=== PATIENT | male | born 1975 | race Two or more races ===

== ENCOUNTER 2020-05-28 22:23 | Emergency (ER) | payer MEDICAID ==
[~2020-05-28] VITALS: Ht 180.3 cm; Wt 118.0 kg
--- NOTE | 2020-05-28 22:56 | NUR ---
PT HERE FOR HEMATOMA AND PAIN TO LEFT LEG. PT DENIES ANY MD HX. PT CHANGING INTO GOWN. PT HAS NO NEEDS AT THIS TIME. CALL LIGHT IN REACH
[2020-05-28 23:51] LABS: BASOPHILS % (AUTO) 2 % (0-1); EOSINOPHILS % (AUTO) 2 % (1-7); LYMPHOCYTES % (AUTO) 38 % (22-44); MEAN CORPUSCULAR HEMOGLOBIN 30.8 pg (27.5-34.5); MEAN CORPUSCULAR HGB CONC 33.8 g/dL (33.2-36.2); MEAN PLATELET VOLUME 10.8 fL (7.4-10.4); MONOCYTES % (AUTO) 7 % (2-9); NEUTROPHILS % (AUTO) 52 % (42-75); PLATELET COUNT 216 x10^3/uL (130-400); RED CELL DISTRIBUTION WIDTH 13.4 % (9.4-14.8)
--- NOTE | 2020-05-28 23:54 | NUR ---
PT BACK FROM IMAGING. LAB AT BEDSIDE. VSS. CALL LIGHT IN REACH
[2020-05-28 23:58] LABS: MD NO
[2020-05-29 00:04] LABS: INTERNATIONAL NORMALIZED RATIO 0.98 (0.93-1.1); PROTHROMBIN TIME 10.5 Seconds (9.6-11.5)
[2020-05-29 00:07] LABS: ALBUMIN 3.4 g/dL (3.4-5.0); ANION GAP 2 mmol/L (5-15); CALCIUM 8.5 mg/dL (8.5-10.1); CHLORIDE 107 mmol/L (98-107)
[2020-05-29 00:11] LABS: ALANINE AMINOTRANSFERASE 23 U/L (12-78); ALKALINE PHOSPHATASE 76 U/L (45-117); BILIRUBIN,TOTAL 0.5 mg/dL (0.2-1.0); TOTAL PROTEIN 6.9 g/dL (6.4-8.2)
--- NOTE | 2020-05-29 00:59 | NUR ---
Patient given discharge instructions and they have confirmed that they understand the instructions. Patient ambulatory with steady gait.
[2020-05-29 01:00] VITALS: BP 139/81
== END 2020-05-29 01:02 | disposition home or self-care (01) ==
LOC: ED 22:53
DX: S70.11XA Contusion of right thigh, initial encounter (principal); F15.129 Other stimulant abuse with intoxication, unspecified; Z72.9 Problem related to lifestyle, unspecified; F17.200 Nicotine dependence, unspecified, uncomplicated; X58.XXXA Exposure to other specified factors, initial encounter; Y93.89 Activity, other specified; Y92.009 Unspecified place in unspecified non-institutional (private) residence as the place of occurrence of the external cause; Y99.8 Other external cause status
CPT/HCPCS: 36415; 80053; 85025; 85610; 99285